=== PATIENT | male | born 1970 | race Caucasian/White ===

== ENCOUNTER 2018-04-17 12:03 | Emergency (ER) | payer SELFPAY ==
[~2018-04-17] VITALS: Ht 167.6 cm; Wt 61.6 kg
[2018-04-17 12:11] VITALS: Ht 167.6 cm; Wt 61.6 kg
[2018-04-17] MEDS ORDERED: ACETAMINOPHEN 325 MG TAB PO STA (13:14)
--- NOTE | 2018-04-17 13:25 | ERD ---
ER Documentation Chief Complaint Chief Complaint Complains of a fever x 3 days HPI 47-year-old male, presents to the emergency department, complaining of worsening of upper respiratory symptoms during the last 3 days, the symptoms include sore throat, headache, fever and productive cough of yellowish sputum. The patient was seen by his primary doctor and started on azithromycin without improvement of the symptoms. The patient denies chest pain, no shortness of breath, no rashes, no gastrointestinal symptoms. ROS All systems reviewed and are negative except as per history of present illness. Medications Home Meds Active Scripts Inhaler, Assist Devices (Compact Space Chamber) 1 Each Spacer, EACH MC Q4H WHILE AWAKE PRN for COUGH, #1 Prov:GHISLAINE BOUCHER MD 04/17/18 Albuterol Sulfate* (Ventolin HFA*) 18 Gm Hfa.aer.ad, 2 PUFF INHALATION Q4H, #1 INHALER Prov:GHISLAINE BOUCHER MD 04/17/18 Acetaminophen* (Tylenol*) 325 Mg Tablet, 2 TAB PO Q8 PRN for PAIN AND OR ELEVATED TEMP, #20 TAB Prov:GHISLAINE BOUCHER MD 04/17/18 Amoxicillin* (Amoxicillin*) 500 Mg Cap, 500 MG PO TID for 10 Days, CAP Prov:GHISLAINE BOUCHER MD 04/17/18 Allergies Allergies: Coded Allergies: No Known Allergy (Unverified , 04/17/18) PMhx/Soc History of Surgery: No Anesthesia Reaction: No Hx Neurological Disorder: No Hx Respiratory Disorders: No Hx Cardiac Disorders: No Hx Psychiatric Problems: No Hx Miscellaneous Medical Probl: Yes (PSORIASIS) Hx Alcohol Use: No Hx Substance Use: No Hx Tobacco Use: No Smoking Status: Never smoker FmHx Family History: diabetes; No coronary disease Physical Exam Vitals Vital Signs Date Temp Pulse Resp B/P (MAP) Pulse Ox O2 O2 Flow FiO2 Time Delivery Rate 04/17/18 98.7 78 18 111/78 98 Room Air 16:20 (89) 04/17/18 81 95 21 15:20 04/17/18 101.3 105 20 116/73 97 12:11 (87) Physical Exam Patient alert, oriented, vital signs showed fever and tachycardia. HEENT: Normocephalic, EYES: PERRLA, EOMI, Sclera and conjunctiva appear normal. EARS: Canals clear, tympanic membranes WNL. THROAT: Erythematous oropharynx. NECK: Supple, No lymphadenopathy. Full ROM without pain or tenderness. HEART: RRR, no rubs, murmurs, clicks or gallops. LUNGS: Bibasilar rhonchi to auscultation. ABDOMEN: Soft, non-tender without masses or hepatosplenomegaly. EXTREMITIES: No edema bilaterally. BACK: Full ROM, no deformity, normal back exam NEURO: Cranial nerves grossly intact, no motor or sensory deficit Result Diagram: 04/17/18 1345 04/17/18 1345 Results 24 hrs Laboratory Tests Test 04/17/18 13:44 04/17/18 13:45 04/17/18 13:51 Urine Color YELLOW Urine Clarity SLIGHTLY CLOUDY Urine pH 5.0 Urine Specific [place] 1.027 Urine Ketones NEGATIVE mg/dL Urine Nitrite NEGATIVE mg/dL Urine Bilirubin NEGATIVE mg/dL Urine Urobilinogen 2+ mg/dL Urine Leukocyte Esterase NEGATIVE Kerri/ul Urine Microscopic RBC 0 /HPF Urine Microscopic WBC 1 /HPF Urine Mucus MANY /HPF Urine Hemoglobin NEGATIVE mg/dL Urine Glucose NEGATIVE mg/dL Urine Total Protein 1+ mg/dl White Blood Count 6.1 10^3/ul Red Blood Count 3.36 10^6/ul Hemoglobin 11.7 g/dl Hematocrit 34.1 % Mean Corpuscular Volume 101.5 fl Mean Corpuscular Hemoglobin 34.8 pg Mean Corpuscular 34.3 g/dl Hemoglobin Concent Red Cell Distribution Width 11.8 % Platelet Count 201 10^3/UL Mean Platelet Volume 9.6 fl Immature Granulocytes % 0.300 % Neutrophils % 78.7 % Lymphocytes % 10.4 % Monocytes % 8.4 % Eosinophils % 2.0 % Basophils % 0.2 % Nucleated Red Blood Cells % 0.0 /100WBC Immature Granulocytes # 0.020 10^3/ul Neutrophils # 4.8 10^3/ul Lymphocytes # 0.6 10^3/ul Monocytes # 0.5 10^3/ul Eosinophils # 0.1 10^3/ul Basophils # 0.0 10^3/ul Nucleated Red Blood Cells # 0.0 10^3/ul Sodium Level 143 mmol/L Potassium Level 4.0 mmol/L Chloride Level 97 mmol/L Carbon Dioxide Level 33 mmol/L Anion Gap 13 Blood Urea Nitrogen 17 mg/dl Creatinine 0.89 mg/dl Est Glomerular Filtrat > 60 mL/min Rate mL/min Glucose Level 154 mg/dl Calcium Level 9.1 mg/dl Total Bilirubin 0.3 mg/dl Direct Bilirubin 0.00 mg/dl Indirect Bilirubin 0.3 mg/dl Aspartate Amino Transf (AST/SGOT) 20 IU/L Alanine 12 IU/L Aminotransferase (ALT/SGPT) Alkaline Phosphatase 75 IU/L Total Protein 7.9 g/dl Albumin 4.2 g/dl Globulin 3.70 g/dl Albumin/Globulin Ratio 1.13 Lipase 40 U/L POC Venous Lactate 1.3 mmol/L Current Medications Medications Dose Sig/Maxim Start Time Status Last (Trade) Ordered Route PRN Stop Time Admin Dose Reason Admin 650 mg ONCE STAT 04/17/18 DC 04/17/18 Acetaminophen PO 13:14 04/17/18 13:53 (Tylenol 13:34 Tab) Sodium 1,000 ml @ Q1H ONCE 04/17/18 DC 04/17/18 Chloride 1,000 mls/hr IV 14:30 04/17/18 14:42 15:29 Ceftriaxone 50 ml @ ONCE ONCE 04/17/18 DC 04/17/18 Sodium 100 mls/hr IVPB 14:30 04/17/18 14:42 14:59 Albuterol 5 mg ONCE STAT 04/17/18 DC 04/17/18 (Proventil HHN 14:29 04/17/18 15:19 0.083% (Neb)) 14:33 Ipratropium 0.5 mg ONCE ONCE 04/17/18 DC 04/17/18 [place] HHN 14:30 04/17/18 15:19 (Atrovent 14:33 0.02% (Neb)) DIAGNOSTIC IMAGING REPORT Patient: SILVERIO JEONG : 1970 Age: 47 Sex: M MR #: [id number] DOS: 04/17/18 1314 Ordering MD: GHISLAINE BOUCHER MD Location: [facility] Room/Bed: PROCEDURE: XR Chest AP portable CLINICAL INDICATION: Sepsis TECHNIQUE: An AP portable radiograph of the chest was submitted. COMPARISON: None. FINDINGS: Support Hardware: None Cardiovascular: The cardiovascular silhouette appears unremarkable. Lung Read: The patient is taken a suboptimal inspiration and discoid atelectasis is seen at the left lung base. The lung read are otherwise clear. Pleural Spaces: No pneumothorax or pleural effusion is identified. Osseous Structures: The osseous structures appear intact. Soft Tissues: The soft tissues appear unremarkable. IMPRESSION: 1. Suboptimal inspiration with discoid atelectasis seen at the left lung base. 2. Otherwise, unremarkable portable chest. R Alfonso Physician Date Time Procedures/MDM Differential diagnosis include but not limited to: Respiratory infection bacterial/viral/fungal. Influenza, asthma, pneumonia, COPD, pneumonitis, allergies, GERD. Less likely foreign body aspiration, cardiac related. Physical examination and clinical presentation consistent most likely with viral infection with early superimposed bacterial infection. During the ED course the patient remained stable, no new complaints. Treatment options and clinical impression discussed with the patient who agrees with management. The patient is stable to be treated outpatient and will be discharged home. Some side effects of prescribed medications (headache, rash, nausea, vomiting, diarrhea, interactions with other medications) were reviewed. The patient needs to follow up with the primary care provider in the next 48h. If symptoms persist, worsen or new symptoms develop, then patient should return to the ED immediately. Disclaimer: Inadvertent spelling and grammatical errors are likely due to EHR/dictation software use and do not reflect on the overall quality of patient care. Also, please note that the electronic time recorded on this note does not necessarily reflect the actual time of the patient encounter. Departure Diagnosis: Primary Impression: Fever Additional Impressions: Cough Superimposed infection Condition: Stable Additional Instructions: Muchas scooter por [facility] para nicole servicio. Esperamos que en nicole visita a la cynthia de emergencia nicole problema medico haya sido solucionado y que se sienta mucho mejor. Para estar seguros que nicole mejoria sigue en proceso, le pedimos el favor de hacer judson susy de seguimiento medico con nicole doctor primario en los proximos 2-4 negrete. Lleve con usted estos documentos y las medicinas recetadas. Si mari sintomas empeoran, NO SE ESPERE, por favor regrese a cynthia de emergencia INMEDIATAMENTE. En chely que usted no tenga un mdico de atencin primaria: Llame al mdico o clnica comunitaria de referencia que aparece abajo doug las horas de consultorio para hacer judson susy para que le vean. CLINICAS: [facility] [phone] [facility] [phone] [facility] [phone] [facility] [phone] [facility] [phone] [address] [facility]. [phone] GHISLAINE KOCH MD Apr 17, 2018 13:24
[2018-04-17] MEDS ORDERED: ALBUTEROL 0.083% (NEB) 2.5 MG/3 ML AMP HHN STA (14:29)
[2018-04-17] MEDS ORDERED: IPRATROPIUM (NEB) 0.5 MG/2.5 ML AMP HHN ONE (14:30)
[2018-04-17] MEDS ORDERED: SOD CHLORIDE 0.9% 1,000 ML IV ONE (14:30)
[2018-04-17] MEDS ORDERED: CEFTRIAXONE 1 GM/50 ML (PMX) 50 ML IVPB ONE (14:30)
[2018-04-17] MEDS ORDERED: AMOX500C2 PO (15:30)
[2018-04-17] MEDS ORDERED: INHA-3 MC (15:30)
[2018-04-17] MEDS ORDERED: ALBU18HF INHALATION (15:30)
[2018-04-17] MEDS ORDERED: ACET325T33 PO (15:30)
[2018-04-17 16:20] VITALS: BP 111/78; PULSE 78; RESP 18
== END 2018-04-17 16:21 | disposition home or self-care (01) ==
LOC: FTE 12:03
DX: A49.9 Bacterial infection, unspecified (principal); R05 Cough
CPT/HCPCS: 71045; 80053; 81001; 83605; 83690; 85025; 87400; 94664; 96365; 99284; J0696; J7030

== ENCOUNTER 2018-06-01 11:27 | Emergency (ER) | payer MEDICAID ==
[~2018-06-01] VITALS: Ht 162.6 cm; Wt 62.0 kg
[~2018-06-01 11:27] MED LIST: ACET325T33 PO; ALBU18HF INHALATION; AMOX500C2 PO; INHA-3 MC
[2018-06-01 11:47] VITALS: Ht 162.6 cm; Wt 62.0 kg
[2018-06-01] MEDS ORDERED: SODIUM CHLORIDE 0.9% 1L BAG IV* STA (12:00)
[2018-06-01] MEDS ORDERED: ACETAMINOPHEN 500 MG TAB PO STA (12:01)
[2018-06-01] MEDS ORDERED: IBUPROFEN 800 MG TAB PO ONE (12:30)
[2018-06-01] MEDS ORDERED: IBUP800T48 PO (13:52)
[2018-06-01] MEDS ORDERED: D-ME473S2 PO (13:52)
[2018-06-01] MEDS ORDERED: ACET500C5 PO (13:52)
[2018-06-01 14:01] VITALS: BP 119/76; PULSE 90; RESP 18
--- NOTE | 2018-06-01 15:38 | ERD ---
ER Documentation Chief Complaint Chief Complaint RIGHT UPPER BACK PAIN X 2 DAYS HPI 48-year-old male presenting with back pain and fevers times 2 days. Patient not taken medications today. States he has a dry cough. Denies any chest pain or shortness of breath. Denies any abdominal pain. Denies vomiting. Denies neck stiffness or headaches. Denies any changes to urination or bowel movement. Denies other medical problems. NKDA. Surgical history denies. Social history denies ROS All systems reviewed and are negative except as per history of present illness. Medications Home Meds Active Scripts Dextromethorphan Hb-Promethazine Hcl* (Promethazine DM* Syrup) 473 Ml Syrup, 5 ML PO Q6 PRN for COUGH, #100 ML Prov:GAIL HOLLOWAY PA-C 06/01/18 Acetaminophen* (Tylophen*) 500 Mg Capsule, 2 CAP PO Q8H PRN for PAIN AND OR ELEVATED TEMP, #20 CAP Prov:GAIL HOLLOWAY PA-C 06/01/18 Ibuprofen* (Motrin*) 800 Mg Tab, 800 MG PO Q6, #30 TAB Prov:GAIL HOLLOWAY PA-C 06/01/18 Inhaler, Assist Devices (Compact Space Chamber) 1 Each Spacer, EACH MC Q4H WHILE AWAKE PRN for COUGH, #1 Prov:GHISLAINE BOUCHER MD 04/17/18 Albuterol Sulfate* (Ventolin HFA*) 18 Gm Hfa.aer.ad, 2 PUFF INHALATION Q4H, #1 INHALER Prov:GHISLAINE BOUCHER MD 04/17/18 Acetaminophen* (Tylenol*) 325 Mg Tablet, 2 TAB PO Q8 PRN for PAIN AND OR ELEVATED TEMP, #20 TAB Prov:GHISLAINE BOUCHER MD 04/17/18 Amoxicillin* (Amoxicillin*) 500 Mg Cap, 500 MG PO TID for 10 Days, CAP Prov:GHISLAINE BOUCHER MD 04/17/18 Allergies Allergies: Coded Allergies: No Known Allergy (Unverified , 04/17/18) PMhx/Soc Medical and Surgical Hx: pt denies Surgical Hx History of Surgery: No Anesthesia Reaction: No Hx Neurological Disorder: No Hx Respiratory Disorders: No Hx Cardiac Disorders: No Hx Psychiatric Problems: No Hx Miscellaneous Medical Probl: Yes (PSORIASIS) Hx Alcohol Use: No Hx Substance Use: No Hx Tobacco Use: No FmHx Family History: No diabetes, No coronary disease, No other Physical Exam Vitals Vital Signs Date Temp Pulse Resp B/P (MAP) Pulse Ox O2 O2 Flow FiO2 Time Delivery Rate 06/01/18 98.1 90 18 119/76 97 Room Air 14:01 (90) 06/01/18 98.6 13:25 06/01/18 101.1 12:18 06/01/18 101.1 12:18 06/01/18 101.1 113 18 127/60 99 11:47 (82) Physical Exam GENERAL: The patient is well-appearing, well-nourished, in no acute distress HEENT: Atraumatic. Conjunctivae are pink. Pupils equal, round, and reactive to light. There is no scleral icterus. Tympanic membranes clear bilaterally. Oropharynx clear. No nystagmus or photophobia. CHEST: Clear to auscultation bilaterally. There are no rales, wheezes or rhonchi. HEART: Regular rate and rhythm. No murmurs, clicks, rubs or gallops. ABDOMEN:Soft, nontender and nondistended. Good bowel sounds. No rebound or guarding. No gross peritonitis. No gross organomegaly or masses. BACK: No midline or flank tenderness. Result Diagram: 06/01/18 1210 06/01/18 1210 Results 24 hrs Laboratory Tests Test 06/01/18 12:05 06/01/18 12:10 06/01/18 12:18 Urine Color YELLOW Urine Clarity CLEAR Urine pH 5.0 Urine Specific [place] 1.013 Urine Ketones NEGATIVE mg/dL Urine Nitrite NEGATIVE mg/dL Urine Bilirubin NEGATIVE mg/dL Urine Urobilinogen NEGATIVE mg/dL Urine Leukocyte Esterase NEGATIVE Kerri/ul Urine Hemoglobin NEGATIVE mg/dL Urine Glucose NEGATIVE mg/dL Urine Total Protein NEGATIVE mg/dl White Blood Count 5.0 10^3/ul Red Blood Count 3.30 10^6/ul Hemoglobin 10.6 g/dl Hematocrit 33.0 % Mean Corpuscular Volume 100.0 fl Mean Corpuscular Hemoglobin 32.1 pg Mean Corpuscular 32.1 g/dl Hemoglobin Concent Red Cell Distribution Width 12.8 % Platelet Count 288 10^3/UL Mean Platelet Volume 9.3 fl Immature Granulocytes % 0.400 % Neutrophils % 77.7 % Lymphocytes % 13.5 % Monocytes % 7.2 % Eosinophils % 1.0 % Basophils % 0.2 % Nucleated Red Blood Cells % 0.0 /100WBC Immature Granulocytes # 0.020 10^3/ul Neutrophils # 3.9 10^3/ul Lymphocytes # 0.7 10^3/ul Monocytes # 0.4 10^3/ul Eosinophils # 0.1 10^3/ul Basophils # 0.0 10^3/ul Nucleated Red Blood Cells # 0.0 10^3/ul Sodium Level 141 mmol/L Potassium Level 4.1 mmol/L Chloride Level 101 mmol/L Carbon Dioxide Level 31 mmol/L Anion Gap 9 Blood Urea Nitrogen 10 mg/dl Creatinine 0.88 mg/dl Est Glomerular Filtrat > 60 mL/min Rate mL/min Glucose Level 119 mg/dl Calcium Level 9.4 mg/dl Total Bilirubin 0.2 mg/dl Direct Bilirubin 0.00 mg/dl Indirect Bilirubin 0.2 mg/dl Aspartate Amino 20 IU/L Transf (AST/SGOT) Alanine 12 IU/L Aminotransferase (ALT/SGPT) Alkaline Phosphatase 80 IU/L Total Protein 7.9 g/dl Albumin 4.1 g/dl Globulin 3.80 g/dl Albumin/Globulin Ratio 1.07 POC Venous Lactate 1.3 mmol/L Current Medications Medications Dose Sig/Maxim Start Time Status Last (Trade) Ordered Route PRN Stop Time Admin Dose Reason Admin Sodium 1,860 ml BOLUS OVER 2 06/01/18 DC 06/01/18 Chloride HOURS STAT 12:00 12:18 (NS) IV* 06/01/18 12:02 Ibuprofen 800 mg ONCE ONCE 06/01/18 DC 06/01/18 (Motrin) PO 12:30 12:18 06/01/18 12:31 1,000 mg ONCE STAT 06/01/18 DC 06/01/18 Acetaminophen PO 12:01 12:18 (Tylenol 06/01/18 12:03 Tab) Procedures/MDM DIAGNOSTIC IMAGING REPORT Patient: SILVERIO JEONG : 1970 Age: 48 Sex: M MR #: [id number] DOS: 06/01/18 1200 Ordering MD: KIMBERLEE HOLLOWAY PA-C Location: [facility] Room/Bed: PROCEDURE: XR Chest. CLINICAL INDICATION: Shortness of breath. Possible sepsis TECHNIQUE: Single AP portable chest. COMPARISON: 04/17/2018 Chest x-ray FINDINGS: The cardiomediastinal silhouette is within normal limits of size. The lungs are clear without pleural effusion or focal consolidation. Mild hypoinflation. Atelectasis. No pneumothorax. The osseous structures and soft tissues are unremarkable. IMPRESSION: 1. No evidence for active cardiopulmonary disease. Hypoinflation. ER Course: 1L NS given in ED. ibuprofen and Tylenol given ED. MDM: 48-year-old male presenting with back pain times 2 days. Patient's blood work and imaging is within normal limits. Patient likely has viral syndrome. I have low suspicion for sepsis as patient's lactate is stable. I have low suspicion for pneumonia patient's chest x-ray is within normal limits. Patient's blood work is stable with no findings of leukocytosis or infection. Patient is discharged stricter precautions. I have low suspicion for acute abdominal emergency. Exam is non-concerning. All questions answered at discharge Departure Diagnosis: Primary Impression: Viral syndrome Additional Impression: Fever Condition: Stable Patient Instructions: Fever Control (Child), Viral Syndrome (Adult) Referrals: COMMUNITY CLINICS YOU HAVE RECEIVED A MEDICAL SCREENING EXAM AND THE RESULTS INDICATE THAT YOU DO NOT HAVE A CONDITION THAT REQUIRES URGENT TREATMENT IN THE EMERGENCY DEPARTMENT. FURTHER EVALUATION AND TREATMENT OF YOUR CONDITION CAN WAIT UNTIL YOU ARE SEEN IN YOUR DOCTORS OFFICE WITHIN THE NEXT 1-2 DAYS. IT IS YOUR RESPONSIBILITY TO MAKE AN APPOINTMENT FOR FOLOW-UP CARE. IF YOU HAVE A PRIMARY DOCTOR --you should call your primary doctor and schedule an appointment IF YOU DO NOT HAVE A PRIMARY DOCTOR YOU CAN CALL OUR PHYSICIAN REFERRAL HOTLINE AT IF YOU CAN NOT AFFORD TO SEE A PHYSICIAN YOU CAN CHOSE FROM THE FOLLOWING [facility] CL[facility] [address] [facility] [address] [facility] [address] [facility] [address] [facility] [address] [facility]. [facility] [address] Additional Instructions: FOLLOW UP WITH YOUR PRIMARY CARE PHYSICIAN TOMORROW.Return to this facility if you are not improving as expected. GAIL HOLLOWAY PA-C Jun 01, 2018 15:38
== END 2018-06-01 14:03 | disposition home or self-care (01) ==
LOC: FTE 11:27
DX: B34.9 Viral infection, unspecified (principal); R50.9 Fever, unspecified
CPT/HCPCS: 36415; 71045; 80053; 81003; 83605; 85025; 87040; 87086; 87400; 96360; J7030; Z7502; Z7610

== ENCOUNTER 2018-10-29 08:52 | Emergency (ER) | payer MEDICAID, OTHER ==
[~2018-10-29] VITALS: Ht 157.5 cm; Wt 65.1 kg
[~2018-10-29 08:52] MED LIST changes: +ACET500C5 PO; +BACL10TA PO; +D-ME473S2 PO; +IBUP-1542 PO; +IBUP800T48 PO
[2018-10-29 09:02] VITALS: BP 127/76; PULSE 65; RESP 17; Ht 157.5 cm; Wt 65.1 kg
--- NOTE | 2018-10-29 09:28 | ERD ---
ER Documentation Chief Complaint Chief Complaint BACK PAIN X 2 MONTHS. HPI Patient is a 48-year-old male, no past medical history, presents the ER for concerns of left-sided back pain for last 2 months. Patient states he feels that the pain throughout his left shoulder, neck and thoracic region. Patient denies any falls, trauma, saddle anesthesia, urine incontinence, stool incontinence, hematuria. Patient denies any chest pain, shortness of breath, cough, fevers, chills, nausea, vomiting left lower extremity pain, diaphoresis or LOC. Patient states he has seen his doctor in the past for this and he was given gabapentin. He states the medication helps intermittently however the pain returns. Patient works as a delivery and installation subcontractor. ROS All systems reviewed and are negative except as per history of present illness. Medications Home Meds Active Scripts Baclofen* (Baclofen*) 10 Mg Tablet, 10 MG PO Q8, #20 TAB Prov:MARIN FRANCIS PA-C 10/29/18 Ibuprofen* (Motrin*) 600 Mg Tab, 600 MG PO Q6, #30 TAB Prov:MARIN FRANCIS PA-C 10/29/18 Dextromethorphan Hb-Promethazine Hcl* (Promethazine DM* Syrup) 473 Ml Syrup, 5 ML PO Q6 PRN for COUGH, #100 ML Prov:GAIL HOLLOWAY PA-C 06/01/18 Acetaminophen* (Tylophen*) 500 Mg Capsule, 2 CAP PO Q8H PRN for PAIN AND OR ELEVATED TEMP, #20 CAP Prov:GAIL HOLLOWAY PA-C 06/01/18 Ibuprofen* (Motrin*) 800 Mg Tab, 800 MG PO Q6, #30 TAB Prov:GAIL HOLLOWAY PA-C 06/01/18 Inhaler, Assist Devices (Compact Space Chamber) 1 Each Spacer, EACH MC Q4H WHILE AWAKE PRN for COUGH, #1 Prov:GHISLAINE BOUCHER MD 04/17/18 Albuterol Sulfate* (Ventolin HFA*) 18 Gm Hfa.aer.ad, 2 PUFF INHALATION Q4H, #1 INHALER Prov:GHISLAINE BOUCHER MD 04/17/18 Acetaminophen* (Tylenol*) 325 Mg Tablet, 2 TAB PO Q8 PRN for PAIN AND OR ELEVAT ED TEMP, #20 TAB Prov:GHISLAINE BOUCHER MD 04/17/18 Amoxicillin* (Amoxicillin*) 500 Mg Cap, 500 MG PO TID for 10 Days, CAP Prov:GHISLAINE BOUCHER MD 04/17/18 Allergies Allergies: Coded Allergies: No Known Allergy (Unverified , 04/17/18) PMhx/Soc Medical and Surgical Hx: pt denies Surgical Hx History of Surgery: No Anesthesia Reaction: No Hx Neurological Disorder: No Hx Respiratory Disorders: No Hx Cardiac Disorders: No Hx Psychiatric Problems: No Hx Miscellaneous Medical Probl: Yes (PSORIASIS) Hx Alcohol Use: No Hx Substance Use: No Hx Tobacco Use: No Smoking Status: Never smoker FmHx Family History: No diabetes Physical Exam Vitals Vital Signs Date Temp Pulse Resp B/P (MAP) Pulse Ox O2 O2 Flow FiO2 Time Delivery Rate 10/29/18 97.4 65 17 127/76 96 09:02 (93) Physical Exam GENERAL: Well-developed, well-nourished male. Appears in no acute distress. HEAD: Normocephalic, atraumatic. EYES: Pupils are equally reactive bilaterally. EOMs grossly intact. No conjunctival erythema. ENT: Moist mucous membranes. No uvula deviation. No kissing tonsils. NECK: Supple. No meningismus. Normal range of motion of the neck. Tender to palpation of the left trapezius muscle. Positive spasms noted. LUNG: Clear to auscultation bilaterally. No rhonchi, wheezing, rales or coarse breath sounds. HEART: Regular rate and rhythm. No murmurs, rubs or gallops. Equal dance costume designer strength bilaterally. ABDOMEN: No scars, ecchymosis or rashes noted. Soft, nontender, and nondistended. Positive bowel sounds in all four quadrants. No rebound tenderness, no guarding. (-) McBurney's point tenderness. No CVA tenderness. No pulsatile masses. BACK: No midline tenderness. EXTREMITIES: Equal pulses bilaterally. No peripheral clubbing, cyanosis or edema. No unilateral leg swelling. NEUROLOGIC: Alert and oriented. Moving all four extremities without any difficulty. Normal speech. Steady gait. SKIN: Normal color. Warm and dry. No rashes or lesions. Procedures/MDM MEDICAL DECISION MAKING: This is a 48-year-old male who presents the ER for concerns of back pain x2 months. Vital signs were reviewed. Patient was afebrile. Patient denied any chest pain, shortness breath, fevers, chills, cough, saddle anesthesia, urinary incontinence, bowel incontinence, night pain or recent trauma. On exam, patient noted to have left-sided trapezius muscle spasm. At this time, patient's presentation is most consistent with musculoskeletal pain. Low suspicion for cauda equine syndrome, spinal fractures, epidural abscess, spinal metastases, osteomyelitis, aortic dissection, ruptured or leaking AA, DJD, sciatica, pyelonephritis or nephrolithiasis. PRESCRIPTIONS: Ibuprofen Baclofen Patient advised not to take baclofen when driving or operating any machinery. DISCHARGE: At this time, patient is stable for discharge and outpatient management. RICE therapy and ROM exercises were advised to avoid stiffness. I have instructed the patient to follow-up with his/her primary care physician in 1-2 days. I have discussed with the patient the possibility of needing to see an plant controls specialist for further workup and imaging if the pain persists. I have instructed the patient to promptly return to the ER for any new or worsening symptoms including increased pain, swelling, warmth, urinary incontinence, stool incontinence, weakness or numbness. The patient and/or family expressed un derstanding of and agreement with this plan. All questions were answered. Home care instructions were provided. Disclaimer: Inadvertent spelling and grammatical errors are likely due to EHR/dictation software use and do not reflect on the overall quality of patient care. Also, please note that the electronic time recorded on this note does not necessarily reflect the actual time of the patient encounter. Departure Diagnosis: Primary Impression: Back pain Back pain location: back pain in unspecified location Chronicity: unspeci fied Back pain laterality: unspecified Qualified Codes: M54.9 - Dorsalgia, unspecified Patient Instructions: Back Pain (Acute Or Chronic) Referrals: COMM[facility] YOU HAVE RECEIVED A MEDICAL SCREENING EXAM AND THE RESULTS INDICATE THAT YOU DO NOT HAVE A CONDITION THAT REQUIRES URGENT TREATMENT IN THE EMERGENCY DEPARTMENT. FURTHER EVALUATION AND TREATMENT OF YOUR CONDITION CAN WAIT UNTIL YOU ARE SEEN IN YOUR DOCTORS OFFICE WITHIN THE NEXT 1-2 DAYS. IT IS YOUR RESPONSIBILITY TO MAKE AN APPOINTMENT FOR FOLOW-UP CARE. IF YOU HAVE A PRIMARY DOCTOR --you should call your primary doctor and schedule an appointment IF YOU DO NOT HAVE A PRIMARY DOCTOR YOU CAN CALL OUR PHYSICIAN REFERRAL HOTLINE AT IF YOU CAN NOT AFFORD TO SEE A PHYSICIAN YOU CAN CHOSE FROM THE FOLLOWING [facility] [address] [facility] [address] [facility] [address] [facility] [address] [facility] [address] [facility]. [facility] [address] [facility]. [facility] YOU HAVE RECEIVED A MEDICAL SCREENING EXAM AND THE RESULTS INDICATE THAT YOU DO NOT HAVE A CONDITION THAT REQUIRES URGENT TREATMENT IN THE EMERGENCY DEPARTMENT. FURTHER EVALUATION AND TREATMENT OF YOUR CONDITION CAN WAIT UNTIL YOU ARE SEEN IN YOUR DOCTORS OFFICE WITHIN THE NEXT 1-2 DAYS. IT IS YOUR RESPONSIBILITY TO MAKE AN APPOINTMENT FOR FOLOW-UP CARE. IF YOU HAVE A PRIMARY DOCTOR --you should call your primary doctor and schedule and appointment IF YOU DO NOT HAVE A PRIMARY DOCTOR YOU CAN CALL OUR PHYSICIAN REFERRAL HOTLINE AT . IF YOU CAN NOT AFFORD TO SEE A PHYSICIAN YOU CAN CHOSE FROM THE FOLLOWING [facility] INSTITUTIONS: [facility] [address] [place] [address] [facility] [place] [address] [place] [address] [facility] [address] [place] [address] Additional Instructions: Llame al doctor MAANA y emeterio judson SADA PARA DENTRO DE 1-2 ROBERTS.Dgale a la secretaria que nosotros le instruimos hacer esta sada.Avise o llame si nicole condicin se empeora antes de la sada. Regresa aqui si peor o no mejor. MARIN FRANCIS PA-C Oct 29, 2018 09:28
== END 2018-10-29 09:33 | disposition home or self-care (01) ==
LOC: FTE 08:52
DX: M54.9 Dorsalgia, unspecified (principal)
CPT/HCPCS: 99283

== ENCOUNTER 2018-12-11 09:49 | Emergency (ER) | payer OTHER ==
[~2018-12-11] VITALS: Ht 152.4 cm; Wt 67.0 kg
[~2018-12-11 09:49] MED LIST changes: +CYCL10TA7 PO
[2018-12-11 09:53] VITALS: BP 120/70; PULSE 90; RESP 18; Ht 152.4 cm; Wt 67.0 kg
[2018-12-11] MEDS ORDERED: KETOROLAC 30 MG INJ IM STA (11:27)
== END 2018-12-11 13:13 | disposition home or self-care (01) ==
LOC: FTE 09:49
DX: M62.838 Other muscle spasm (principal)
CPT/HCPCS: 72050; 72072; 96372; J1885; Z7502